=== PATIENT | female | born 1955 ===

== ENCOUNTER 2017-08-11 21:12 | Inpatient (IN) | payer OTHER ==
[~2017-08-11] VITALS: Ht 165.1 cm; Wt 68.0 kg
[~2017-08-11 21:12] MED LIST: BUPROPION HCL75 MG; CLONAZEPAM2 MG; LISINOPRIL5 MG; LISINOPRIL5 MG PO; METFORMIN HCL500 MG PO; PERCOCET 10-321 EACH PO; RISPERIDONE O0.25 MG PO; WELLBUTRIN SR100 MG PO; XELODA500 MG PO
[2017-08-22] MEDS ORDERED: AMLODIPINE BESYL5 MG PO (09:16)
== END 2017-08-22 13:36 | disposition home or self-care (01) | DRG 683 ==
LOC: ER 21:12 → MEDI 08-12 10:17
PROC: 3E0F7GC Introduction of Other Therapeutic Substance into Respiratory Tract, Via Natural or Artificial Opening (ICD-10-PCS; principal; 2017-08-12)
PROC: BT43ZZZ Ultrasonography of Bilateral Kidneys (ICD-10-PCS; 2017-08-12)
PROC: 30233N1 Transfusion of Nonautologous Red Blood Cells into Peripheral Vein, Percutaneous Approach (ICD-10-PCS; 2017-08-12)
PROC: CW1NLZZ Planar Nuclear Medicine Imaging of Whole Body using Gallium 67 (Ga-67) (ICD-10-PCS; 2017-08-18)
DX: N17.8 Other acute kidney failure (principal); C19 Malignant neoplasm of rectosigmoid junction; K92.2 Gastrointestinal hemorrhage, unspecified; E87.5 Hyperkalemia; D63.0 Anemia in neoplastic disease; K59.09 Other constipation; I10 Essential (primary) hypertension

== ENCOUNTER 2017-09-26 11:21 | Inpatient (IN) | payer OTHER ==
[~2017-09-26] VITALS: Ht 167.6 cm; Wt 63.5 kg
[~2017-09-26 11:21] MED LIST changes: +AMLODIPINE BESYL5 MG PO
[2017-10-02] MEDS ORDERED: LEVAQUIN750 MG PO (15:52)
[2017-10-02] MEDS ORDERED: BUPROPION HCL150 M1 PO (15:52)
[2017-10-02] MEDS ORDERED: XOPENEX0.63 MG/3 IH (15:52)
[2017-10-02] MEDS ORDERED: RISPERDAL1 MG PO (15:52)
[2017-10-02] MEDS ORDERED: CLONAZEPAM1 MG PO (15:52)
[2017-10-02] MEDS ORDERED: MORPHINE IV (15:52)
== END 2017-10-02 18:13 | disposition other institution (70) | DRG 181 ==
LOC: ER 11:21 → SURH 19:25 → SEC-K 19:25 → SURH 09-27 19:52
PROC: 4A033R1 Measurement of Arterial Saturation, Peripheral, Percutaneous Approach (ICD-10-PCS; 2017-09-26)
PROC: 3E0F7GC Introduction of Other Therapeutic Substance into Respiratory Tract, Via Natural or Artificial Opening (ICD-10-PCS; 2017-09-26)
PROC: BW24ZZZ Computerized Tomography (CT Scan) of Chest and Abdomen (ICD-10-PCS; 2017-09-26)
PROC: 30233N1 Transfusion of Nonautologous Red Blood Cells into Peripheral Vein, Percutaneous Approach (ICD-10-PCS; principal; 2017-10-01)
DX: C78.02 Secondary malignant neoplasm of left lung (principal); C20 Malignant neoplasm of rectum; N17.8 Other acute kidney failure; N39.0 Urinary tract infection, site not specified; N13.2 Hydronephrosis with renal and ureteral calculous obstruction; C78.01 Secondary malignant neoplasm of right lung; R09.02 Hypoxemia; B95.2 Enterococcus as the cause of diseases classified elsewhere; I10 Essential (primary) hypertension; E87.5 Hyperkalemia; D63.0 Anemia in neoplastic disease; K59.09 Other constipation